=== PATIENT | female | born 1975 | race Hispanic/Latino ===

== ENCOUNTER 2017-12-17 20:41 | Emergency (ER) | payer SELFPAY ==
[2017-12-17] MEDS ORDERED: MOXIFLOXACIN HCL 0.5% 3ML DROPS OU ONE (22:00)
== END 2017-12-17 22:30 | disposition home or self-care (01) ==
LOC: EDH 20:41
DX: H16.011 Central corneal ulcer, right eye (principal); Z88.0 Allergy status to penicillin

== ENCOUNTER 2019-06-28 05:16 | Emergency (ER) | payer OTHER ==
[2019-06-28] MEDS ORDERED: LIDOCAINE HCL 2% 20ML ONE (06:21)
== END 2019-06-28 07:20 | disposition home or self-care (01) ==
LOC: EDH 05:16
DX: T16.2XXA Foreign body in left ear, initial encounter (principal); Z88.0 Allergy status to penicillin; X58.XXXA Exposure to other specified factors, initial encounter; Y93.89 Activity, other specified; Y92.89 Other specified places as the place of occurrence of the external cause; Y99.8 Other external cause status
CPT/HCPCS: 69200; 99284; J3490